=== PATIENT | male | born 1980 | race Native Hawaiian/Other Pacific Islander ===

== ENCOUNTER 2020-04-28 10:43 | Outpatient (CLI) | payer BC | END 2020-04-28 22:27 | disposition home or self-care (01) | LOC: RAD 10:43 | PROVIDERS: ATTEND Nurse Practitioner | DX: S93.504A Unspecified sprain of right lesser toe(s), initial encounter (principal) ==

== ENCOUNTER 2022-10-13 09:57 | Outpatient (CLI) | payer BC | END 2022-10-13 20:49 | disposition home or self-care (01) | LOC: RAD 09:57 | PROVIDERS: ATTEND Registered Nurse | DX: R06.02 Shortness of breath (principal) ==